=== PATIENT | male | born 1970 | race Hispanic/Latino ===

== ENCOUNTER 2017-04-03 13:01 | Emergency (ER) | payer OTHER ==
[2017-04-03 14:06] LABS: BASOPHILS % (AUTO) 0.7 % (0.0-5.0); EOSINOPHILS % (AUTO) 0.7 % (0.0-8.0); HEMATOCRIT 40.6 % (42-54); LYMPHOCYTES % (AUTO) 25.7 % (21.0-51.0); MEAN CORPUSCULAR HEMOGLOBIN 29.9 pg (27.0-33.0); MEAN CORPUSCULAR HGB CONC 35.8 g/dL (32.0-36.0); MEAN CORPUSCULAR VOLUME 83.5 fL (79-99); MONOCYTES % (AUTO) 7.3 % (3.0-13.0); NEUTROPHILS % (AUTO) 65.6 % (40.0-77.0); PLATELET COUNT (AUTO) 225 K/uL (130-400); RED BLOOD CELL COUNT(AUTO) 4.86 MIL/uL (4.50-6.20); RED CELL DISTRIBUTION WIDTH 13.6 % (11.0-15.5); WHITE BLOOD COUNT (AUTO) 10.3 K/uL (4.8-10.8)
[2017-04-03 14:22] LABS: CREATININE 1.3 mg/dL (0.5-1.5); POTASSIUM 4.4 mmol/L (3.5-5.1)
[2017-04-03 14:27] LABS: ALBUMIN 3.3 g/dL (3.5-5.0); BILIRUBIN,TOTAL 0.7 mg/dL (0.2-1.0); TOTAL PROTEIN, SERUM 7.4 g/dL (6.0-8.3)
[2017-04-03] MEDS ORDERED: KETOROLAC TROMETHAMINE 15MG/ML ONE (14:32)
[2017-04-03] MEDS ORDERED: INSULIN HUMULIN R 100 UNIT/ML 3ML ONE (14:33)
== END 2017-04-03 16:45 | disposition home or self-care (01) ==
LOC: EDH 13:01
DX: I80.8 Phlebitis and thrombophlebitis of other sites (principal); E11.9 Type 2 diabetes mellitus without complications; I10 Essential (primary) hypertension; Z88.8 Allergy status to other drugs, medicaments and biological substances; Z98.890 Other specified postprocedural states
CPT/HCPCS: 36415; 80053; 85025; 93005; 93971; 96372 ×2; 99285; J1815; J1885; 96374

== ENCOUNTER 2019-02-28 20:53 | Emergency (ER) | payer OTHER ==
[~2019-02-28 20:53] MED LIST: AMLO-73 PO; METF-446 PO
[2019-02-28] MEDS ORDERED: ONDANSETRON ODT 4 MG TAB ONE (22:10)
[2019-02-28] MEDS ORDERED: HYDROCODONE/ACETAMINOPHEN 10/325 MG TAB ONE (22:11)
[2019-02-28] MEDS ORDERED: LIDOCAINE 1%-EPI 1:100,000 20 ML VIAL IJ ONE (23:03)
[2019-03-05] MEDS ORDERED: ACET1TAB12 PO (05:00)
[2019-03-05] MEDS ORDERED: METH500T6 PO (05:01)
== END 2019-02-28 23:02 | disposition home or self-care (01) ==
LOC: EDH 20:53
DX: M43.06 Spondylolysis, lumbar region (principal); M54.5 Low back pain; I10 Essential (primary) hypertension; E11.9 Type 2 diabetes mellitus without complications; Z98.890 Other specified postprocedural states; Z87.891 Personal history of nicotine dependence
CPT/HCPCS: 74176; 99284; J3490

== ENCOUNTER 2019-08-19 | Inpatient (IN) | payer OTHER | END 2019-08-22 17:30 | disposition home or self-care (01) | DRG 300 | PROVIDERS: ADMIT Family Medicine ==

== ENCOUNTER 2021-04-25 23:43 | Inpatient (IN) | payer BC, OTHER ==
[~2021-04-25] VITALS: Ht 152.4 cm; Wt 129.0 kg
[~2021-04-25 23:43] MED LIST changes: +APIX5TAB PO; +FOLI0.8T3 PO; +HYDR-4153 PO; +METF-444 PO; -METF-446 PO; +METO25TA6 PO
[2021-04-26 01:46] LABS: BASOPHILS % (AUTO) 0.4 % (0.0-5.0); EOSINOPHILS % (AUTO) 0.4 % (0.0-8.0); HEMATOCRIT 26.6 % (42-54); MEAN CORPUSCULAR HEMOGLOBIN 27.8 pg (27.0-33.0); MEAN CORPUSCULAR HGB CONC 30.1 g/dL (32.0-36.0); MEAN CORPUSCULAR VOLUME 92.4 fL (79-99); MONOCYTES % (AUTO) 7.2 % (3.0-13.0); NEUTROPHILS % (AUTO) 72.9 % (40.0-77.0); PLATELET COUNT (AUTO) 351 K/uL (130-400); RED BLOOD CELL COUNT(AUTO) 2.88 MIL/uL (4.50-6.20); RED CELL DISTRIBUTION WIDTH 14.3 % (11.0-15.5); WHITE BLOOD COUNT (AUTO) 16.7 K/uL (4.8-10.8)
[2021-04-26 02:00] LABS: B-TYPE NATRIURETIC PEPTIDE 482 pg/mL (0-100)
[2021-04-26 02:12] LABS: ALBUMIN 2.2 g/dL (3.5-5.0); BILIRUBIN,TOTAL 0.3 mg/dL (0.2-1.0); MAGNESIUM 2.6 mg/dL (1.80-2.40); POTASSIUM 5.8 mmol/L (3.5-5.1); TOTAL PROTEIN, SERUM 6.8 g/dL (6.0-8.3)
[2021-04-26 02:14] LABS: CREATININE 13.6 mg/dL (0.5-1.5)
[2021-04-26] MEDS ORDERED: ZOSYN 3.375GM +NS 50ML IV SCH (07:00)
[2021-04-26] MEDS ORDERED: MORPHINE 2 MG SYG IV PRN (07:00)
[2021-04-26] MEDS ORDERED: ACETAMINOPHEN 325 MG TAB PO PRN ×2 (07:00)
[2021-04-26] MEDS: INSULIN HUMULIN R 100 UNIT/ML 3ML SQ SCH ×4 (07:30→21:00)
[2021-04-26] MEDS ORDERED: 0.9%NACL 50ML 50 ML IV ONE (07:39)
[2021-04-26] MEDS ORDERED: AMLO-258 PO (09:33)
[2021-04-26] MEDS ORDERED: METO25TA6 PO (09:33)
[2021-04-26] MEDS ORDERED: ROSU20TA31 PO (09:33)
[2021-04-26] MEDS ORDERED: OMEP40CA21 PO (09:33)
[2021-04-26] MEDS ORDERED: FOLI0.8C PO (09:33)
[2021-04-26] MEDS ORDERED: NA ZIRCON CYCLOSIL(LOKELMA 10GM) PO ONE (10:00)
[2021-04-26] MEDS: METOPROLOL TARTRATE 25 MG TAB PO SCH ×2 (10:30→21:38)
[2021-04-26] MEDS: FAMOTIDINE 20MG VIAL IV SCH (10:44)
[2021-04-26 13:15] VITALS: BP 110/58
[2021-04-26 13:38] LABS: CREATININE 14.2 mg/dL (0.5-1.5)
[2021-04-26] MEDS ORDERED: NA ZIRCON CYCLOSIL(LOKELMA 10GM) PO SCH ×2 (14:00→16:30)
[2021-04-26] MEDS ORDERED: DEXTROSE 50%-WATER 50 ML DISP.SYRIN IV SCH (14:00)
[2021-04-26] MEDS ORDERED: CALCIUM GLUC 1GM/10ML VIAL IV ONE (14:00)
[2021-04-26] MEDS ORDERED: INSULIN HUMULIN R 100 UNIT/ML 3ML SQ SCH (14:00)
[2021-04-26 14:16] LABS: ABG BASE EXCESS -16.6 mmol/L (-2.0-3.0); ABG HCO3 10.7 mmol/L (21.0-28.0); ABG OXYGEN SATURATION 68.2 % (95.0-99.0); ABG PCO2 30 mmHg (35-48)
[2021-04-26] MEDS ORDERED: SODIUM BICARB 50MEQ 50ML VIAL IV ONE (15:00)
[2021-04-26] MEDS: FUROSEMIDE 20MG VIAL IV SCH (15:02)
[2021-04-26 16:00] VITALS: BP 125/62
[2021-04-26 19:11] LABS: POTASSIUM 5.9 mmol/L (3.5-5.1)
[2021-04-26 19:19] LABS: CREATININE 14.2 mg/dL (0.5-1.5)
[2021-04-26] MEDS: MORPHINE 2 MG SYG IVP PRN (19:48)
[2021-04-26 20:12] VITALS: BP 131/60
[2021-04-26] MEDS: ZOSYN 3.375GM +NS 50ML IV SCH (21:38)
[2021-04-26 23:46] VITALS: BP 115/55
[2021-04-27] VITALS (16 sets, daily range): BP systolic 118–166; BP diastolic 55–77
[2021-04-27] MEDS: MORPHINE 2 MG SYG IVP PRN ×2 (00:31→04:16)
[2021-04-27] MEDS: FUROSEMIDE 20MG VIAL IV SCH ×2 (02:30→15:35)
[2021-04-27] MEDS: ONDANSETRON 4MG INJ IV PRN ×2 (04:15→12:15)
[2021-04-27 04:53] LABS: BASOPHILS % (AUTO) 0.4 % (0.0-5.0); EOSINOPHILS % (AUTO) 0.2 % (0.0-8.0); HEMATOCRIT 24.2 % (42-54); LYMPHOCYTES % (AUTO) 13.4 % (21.0-51.0); MEAN CORPUSCULAR HEMOGLOBIN 28.2 pg (27.0-33.0); MEAN CORPUSCULAR HGB CONC 30.2 g/dL (32.0-36.0); MEAN CORPUSCULAR VOLUME 93.4 fL (79-99); MONOCYTES % (AUTO) 7.5 % (3.0-13.0); NEUTROPHILS % (AUTO) 77.9 % (40.0-77.0); NUCLEATED RED BLOOD CELLS 0.1 % (0.0-0.19); PLATELET COUNT (AUTO) 319 K/uL (130-400); RED BLOOD CELL COUNT(AUTO) 2.59 MIL/uL (4.50-6.20); RED CELL DISTRIBUTION WIDTH 14.1 % (11.0-15.5); WHITE BLOOD COUNT (AUTO) 15.5 K/uL (4.8-10.8)
[2021-04-27 05:09] LABS: ALBUMIN 2.1 g/dL (3.5-5.0); BILIRUBIN,TOTAL 0.2 mg/dL (0.2-1.0); POTASSIUM 5.8 mmol/L (3.5-5.1); TOTAL PROTEIN, SERUM 6.4 g/dL (6.0-8.3)
[2021-04-27 05:11] LABS: % IRON SATURATION 39.8 % (30-44)
[2021-04-27 05:14] LABS: CREATININE 14.4 mg/dL (0.5-1.5)
[2021-04-27] MEDS: INSULIN HUMULIN R 100 UNIT/ML 3ML SQ SCH ×4 (06:33→21:00)
[2021-04-27] MEDS: FAMOTIDINE 20MG VIAL IV SCH (09:05)
[2021-04-27] MEDS: ZOSYN 3.375GM +NS 50ML IV SCH ×2 (09:05→21:35)
[2021-04-27] MEDS: METOPROLOL TARTRATE 25 MG TAB PO SCH ×2 (09:05→21:35)
[2021-04-27] MEDS: Vitamin B Complex/Vit C/Folic Acid PO SCH (09:05)
[2021-04-27] MEDS ORDERED: IOHEXOL-350 50ML VIAL IV ONE (10:56)
[2021-04-27] MEDS ORDERED: MIDAZOLAM HCL 1 MG/ML 2ML VIAL ONE (10:56)
[2021-04-27] MEDS ORDERED: LIDOCAINE HCL 1% MDV 50ML VIAL ONE (10:56)
[2021-04-27] MEDS ORDERED: HEPARIN 10,000 UNIT/10ML (1,000 UNIT/ML) VIAL ONE (11:25)
[2021-04-27 14:54] LABS: HEMATOCRIT 24.2 % (42-54)
[2021-04-27 15:10] LABS: ALBUMIN 2.2 g/dL (3.5-5.0)
[2021-04-27 15:12] LABS: CREATININE 13.5 mg/dL (0.5-1.5)
[2021-04-27] MEDS: HEPARIN 5,000 UNIT VIAL IRRIG PRN (16:37)
[2021-04-27] MEDS ORDERED: ZINC OXIDE OINT 56.7 GM TP PRN (18:30)
[2021-04-27 18:42] LABS: HEPATITIS B SURFACE ANTIGEN Non-Reactive (Negative)
[2021-04-27] MEDS ORDERED: LABETALOL 20MG VIAL IV PRN (20:00)
[2021-04-28] VITALS (19 sets, daily range): BP systolic 119–180; BP diastolic 61–88
[2021-04-28] MEDS: HYDRALAZINE 25MG TABLET PO SCH ×3 (00:18→09:21)
[2021-04-28] MEDS: ONDANSETRON 4MG INJ IV PRN ×2 (01:04→10:26)
[2021-04-28] MEDS: FUROSEMIDE 20MG VIAL IV SCH (01:06)
[2021-04-28] MEDS: INSULIN HUMULIN R 100 UNIT/ML 3ML SQ SCH ×4 (07:30→21:00)
[2021-04-28] MEDS: ZOSYN 3.375GM +NS 50ML IV SCH ×2 (09:16→21:18)
[2021-04-28] MEDS: METOPROLOL TARTRATE 25 MG TAB PO SCH ×2 (09:16→21:17)
[2021-04-28] MEDS: Vitamin B Complex/Vit C/Folic Acid PO SCH (09:16)
[2021-04-28] MEDS: FAMOTIDINE 20MG VIAL IV SCH (09:16)
[2021-04-28 09:32] LABS: POTASSIUM 5.1 mmol/L (3.5-5.1)
[2021-04-28 09:44] LABS: CREATININE 13.7 mg/dL (0.5-1.5)
[2021-04-28] MEDS ORDERED: EPOETIN ALFA-EPBX (ESRD) 10,000 UNIT/ML VIAL SQ SCH (12:00)
[2021-04-28] MEDS ORDERED: HEPARIN 5,000 UNIT VIAL IV SCH (15:00)
[2021-04-28] MEDS: HEPARIN 5,000 UNIT VIAL IRRIG PRN (15:13)
[2021-04-28] MEDS: CALCIUM AC 667MG CAP PO SCH ×2 (16:16→18:24)
[2021-04-28] MEDS ORDERED: BISACODYL 5 MG TABLET.DR PO SCH (20:00)
[2021-04-28] MEDS ORDERED: GUAIFENESIN-DM 200/20 MG 10 ML PO PRN (22:30)
[2021-04-28] MEDS: IPRATROPIUM/ALBUTEROL SULFATE 3 ML SOLUTION IH SCH (23:02)
[2021-04-29] VITALS (7 sets, daily range): BP systolic 104–162; BP diastolic 63–86
[2021-04-29] MEDS: IPRATROPIUM/ALBUTEROL SULFATE 3 ML SOLUTION IH SCH (02:18)
[2021-04-29] MEDS: INSULIN HUMULIN R 100 UNIT/ML 3ML SQ SCH ×4 (06:38→21:00)
[2021-04-29] MEDS: ALBUTEROL 0.083% 2.5 MG/3 ML INH IH SCH ×4 (06:44→18:59)
[2021-04-29] MEDS ORDERED: ALBUTEROL 0.083% 2.5 MG/3 ML INH IH SCH (09:00)
[2021-04-29] MEDS: METOPROLOL TARTRATE 25 MG TAB PO SCH ×2 (09:11→21:28)
[2021-04-29] MEDS: SENNOSIDES 8.6 MG TABLET PO SCH (09:11)
[2021-04-29] MEDS: CALCIUM AC 667MG CAP PO SCH ×3 (09:11→17:00)
[2021-04-29] MEDS: ZOSYN 3.375GM +NS 50ML IV SCH ×2 (09:11→21:43)
[2021-04-29] MEDS: FAMOTIDINE 20MG VIAL IV SCH (09:12)
[2021-04-29] MEDS: Vitamin B Complex/Vit C/Folic Acid PO SCH (09:12)
[2021-04-29] MEDS: ONDANSETRON 4MG INJ IV PRN (12:45)
[2021-04-29] MEDS: HEPARIN 5,000 UNIT VIAL IRRIG PRN (16:25)
[2021-04-30] VITALS (24 sets, daily range): BP systolic 140–198; BP diastolic 67–100
[2021-04-30] MEDS: HEPARIN 5,000 UNIT VIAL IRRIG PRN (00:59)
[2021-04-30 05:13] LABS: BASOPHILS % (AUTO) 0.6 % (0.0-5.0); EOSINOPHILS % (AUTO) 0.9 % (0.0-8.0); HEMATOCRIT 21.3 % (42-54); LYMPHOCYTES % (AUTO) 17.5 % (21.0-51.0); MEAN CORPUSCULAR HEMOGLOBIN 28.3 pg (27.0-33.0); MEAN CORPUSCULAR HGB CONC 31.9 g/dL (32.0-36.0); MEAN CORPUSCULAR VOLUME 88.8 fL (79-99); MONOCYTES % (AUTO) 10.2 % (3.0-13.0); NEUTROPHILS % (AUTO) 69.8 % (40.0-77.0); PLATELET COUNT (AUTO) 122 K/uL (130-400); RED CELL DISTRIBUTION WIDTH 13.9 % (11.0-15.5); WHITE BLOOD COUNT (AUTO) 12.8 K/uL (4.8-10.8)
[2021-04-30 05:14] LABS: INR 1.06 (0.85-1.15); PROTHROMBIN TIME 11.5 SEC (9.6-11.6)
[2021-04-30 05:32] LABS: PHOSPHORUS 10.1 mg/dL (2.5-4.9); POTASSIUM 4.7 mmol/L (3.5-5.1)
[2021-04-30 05:37] LABS: CREATININE 12.4 mg/dL (0.5-1.5)
[2021-04-30 05:55] LABS: HEMATOCRIT 21.3 % (42-54)
[2021-04-30] MEDS: ALBUTEROL 0.083% 2.5 MG/3 ML INH IH SCH ×4 (06:22→19:16)
[2021-04-30] MEDS: INSULIN HUMULIN R 100 UNIT/ML 3ML SQ SCH ×4 (06:52→21:00)
[2021-04-30] MEDS: Vitamin B Complex/Vit C/Folic Acid PO SCH (09:49)
[2021-04-30] MEDS: METOPROLOL TARTRATE 25 MG TAB PO SCH ×2 (09:49→21:27)
[2021-04-30] MEDS: SENNOSIDES 8.6 MG TABLET PO SCH (09:49)
[2021-04-30] MEDS: CALCIUM AC 667MG CAP PO SCH ×3 (09:49→17:11)
[2021-04-30] MEDS: ZOSYN 3.375GM +NS 50ML IV SCH ×2 (09:50→21:26)
[2021-04-30] MEDS: FAMOTIDINE 20MG VIAL IV SCH (09:50)
[2021-04-30] MEDS: EPOETIN ALFA-EPBX (ESRD) 10,000 UNIT/ML VIAL SQ SCH (21:26)
[2021-05-01] VITALS (21 sets, daily range): BP systolic 138–185; BP diastolic 69–97
[2021-05-01] MEDS: HEPARIN 5,000 UNIT VIAL IRRIG PRN (01:35)
[2021-05-01 06:24] LABS: HEMOGLOBIN A1C 6.6 % (4.0-6.0)
[2021-05-01] MEDS: INSULIN HUMULIN R 100 UNIT/ML 3ML SQ SCH ×4 (06:24→20:25)
[2021-05-01] MEDS: ALBUTEROL 0.083% 2.5 MG/3 ML INH IH SCH ×4 (07:37→17:22)
[2021-05-01] MEDS: CALCIUM AC 667MG CAP PO SCH ×3 (08:00→17:37)
[2021-05-01 08:26] LABS: HEMATOCRIT 24.8 % (42-54); MEAN CORPUSCULAR HEMOGLOBIN 27.7 pg (27.0-33.0); MEAN CORPUSCULAR HGB CONC 31.5 g/dL (32.0-36.0); MEAN CORPUSCULAR VOLUME 87.9 fL (79-99); NUCLEATED RED BLOOD CELLS 0.4 % (0.0-0.19); RED BLOOD CELL COUNT(AUTO) 2.82 MIL/uL (4.50-6.20); RED CELL DISTRIBUTION WIDTH 13.9 % (11.0-15.5); WHITE BLOOD COUNT (AUTO) 13.3 K/uL (4.8-10.8)
[2021-05-01 08:30] LABS: INR 1.06 (0.85-1.15); PROTHROMBIN TIME 11.5 SEC (9.6-11.6)
[2021-05-01 08:32] LABS: PARTIAL THROMBOPLASTIN TIME 31.9 SEC (26.3-35.5)
[2021-05-01 08:35] LABS: POTASSIUM 3.7 mmol/L (3.5-5.1)
[2021-05-01] MEDS: SENNOSIDES 8.6 MG TABLET PO SCH (08:56)
[2021-05-01] MEDS: Vitamin B Complex/Vit C/Folic Acid PO SCH (08:56)
[2021-05-01] MEDS: FAMOTIDINE 20MG VIAL IV SCH (09:00)
[2021-05-01] MEDS: METOPROLOL TARTRATE 25 MG TAB PO SCH ×2 (10:51→20:27)
[2021-05-01] MEDS: ZOSYN 3.375GM +NS 50ML IV SCH ×2 (10:51→22:14)
[2021-05-01] MEDS ORDERED: 0.9%NACL 1000ML 1,000 ML IV ONE (13:35)
[2021-05-01] MEDS ORDERED: CEFAZOLIN SODIUM 1 GM VIAL ONE (13:42)
[2021-05-01] MEDS ORDERED: ROPIVACAINE 0.5% 5MG/ML 30ML IJ ONE ×2 (13:53→15:30)
[2021-05-01] MEDS ORDERED: MIDAZOLAM HCL 1 MG/ML 2ML VIAL ONE (13:59)
[2021-05-01] MEDS ORDERED: EPHEDRINE SULFATE 50 MG/ML AMPULE ONE (14:13)
[2021-05-01] MEDS ORDERED: BUPIVACAINE/PF 0.5% 30ML VIAL ONE (14:46)
[2021-05-01] MEDS ORDERED: LIDOCAINE HCL 1% MDV 50ML VIAL ONE (14:46)
[2021-05-01] MEDS ORDERED: PROPOFOL 10 MG/ML 20ML VIAL IV ONE (14:46)
[2021-05-01] MEDS ORDERED: FENTANYL CITRATE PF 50 MCG/1 ML 2ML VIAL ONE (15:05)
[2021-05-01] MEDS ORDERED: PROTAMINE SULFATE 10 MG/ML 5 ML VIAL ONE (15:12)
[2021-05-01] MEDS ORDERED: HEPARIN 10,000 UNIT/10ML (1,000 UNIT/ML) VIAL ONE (15:30)
[2021-05-01] MEDS ORDERED: LIDOCAINE 2%-EPI 1:200,000 20 ML VIAL IJ ONE (15:30)
[2021-05-01] MEDS ORDERED: AMLODIPINE 5 MG TAB PO ONE (22:30)
[2021-05-02] VITALS (22 sets, daily range): BP systolic 148–200; BP diastolic 69–103
[2021-05-02] MEDS ORDERED: AMLODIPINE 5 MG TAB ONE (00:26)
[2021-05-02 03:03] LABS: APPEARANCE,URINE Clear (CLEAR); BILIRUBIN,URINE Negative (NEGATIVE); COLOR,URINE Yellow (YELLOW); GLUCOSE, URINE (UA) 250 mg/dL (NEGATIVE); KETONES,URINE Negative (NEGATIVE); LEUKOCYTE ESTERASE ,URINE Trace (NEGATIVE); NITRATE,URINE Negative (NEGATIVE); OCCULT BLOOD,URINE Moderate (NEGATIVE); PROTEIN,URINE 300 mg/dL (NEGATIVE); UROBILINOGEN,URINE 0.2 mg/dL (0.2-1.0)
[2021-05-02 03:07] LABS: CREATININE,URINE RANDOM 44 mg/dL (30-135)
[2021-05-02 03:10] LABS: BACTERIA,URINE None Seen /HPF (None Seen); SQUAMOUS EPITHELIAL CELL,UR Rare /HPF (0-2); WBC,URINE 0-1 /HPF (0-1)
[2021-05-02 03:42] LABS: PROTEIN,URINE RANDOM 341.4 mg/dL (0-11.9)
[2021-05-02 04:55] LABS: BASOPHILS % (AUTO) 0.6 % (0.0-5.0); EOSINOPHILS % (AUTO) 2.2 % (0.0-8.0); HEMATOCRIT 23.8 % (42-54); LYMPHOCYTES % (AUTO) 11.2 % (21.0-51.0); MEAN CORPUSCULAR HEMOGLOBIN 28.4 pg (27.0-33.0); MEAN CORPUSCULAR HGB CONC 31.5 g/dL (32.0-36.0); MEAN CORPUSCULAR VOLUME 90.2 fL (79-99); MONOCYTES % (AUTO) 9.6 % (3.0-13.0); NEUTROPHILS % (AUTO) 75.1 % (40.0-77.0); NUCLEATED RED BLOOD CELLS 0.4 % (0.0-0.19); PLATELET COUNT (AUTO) 227 K/uL (130-400); RED BLOOD CELL COUNT(AUTO) 2.64 MIL/uL (4.50-6.20); RED CELL DISTRIBUTION WIDTH 13.9 % (11.0-15.5); WHITE BLOOD COUNT (AUTO) 14.1 K/uL (4.8-10.8)
[2021-05-02 05:27] LABS: % IRON SATURATION 11.9 % (30-44)
[2021-05-02 05:51] LABS: ALANINE AMINOTRANSFERASE 24 U/L (12-78); ALBUMIN 2.2 g/dL (3.5-5.0); ASPARTATE AMINOTRANSFERASE 24 U/L (10-37); BILIRUBIN,TOTAL 0.3 mg/dL (0.2-1.0); CARBON DIOXIDE 23 mmol/L (21-32); CHLORIDE 98 mmol/L (101-111); GLOMERULAR FILTR. RATE CALC 6 mL/min (>60); GLUCOSE,RANDOM 149 mg/dL (70-105); PHOSPHORUS 8.2 mg/dL (2.5-4.9); POTASSIUM 3.9 mmol/L (3.5-5.1); SODIUM SERUM 135 mmol/L (136-145); TOTAL PROTEIN, SERUM 6.7 g/dL (6.0-8.3); UREA NITROGEN, BLOOD 53 mg/dL (7-18)
[2021-05-02 05:54] LABS: CREATININE 10.5 mg/dL (0.5-1.5)
[2021-05-02] MEDS: INSULIN HUMULIN R 100 UNIT/ML 3ML SQ SCH ×4 (06:18→21:03)
[2021-05-02] MEDS: ALBUTEROL 0.083% 2.5 MG/3 ML INH IH SCH ×4 (06:50→18:28)
[2021-05-02] MEDS ORDERED: FAMOTIDINE 20MG TAB PO ONE (09:00)
[2021-05-02] MEDS: LOSARTAN 50 MG TABLET PO SCH ×3 (10:00→20:56)
[2021-05-02] MEDS ORDERED: IRON SUCROSE COMPLEX 400 MG in 0.9% NACL 250ML 250 ML IV SCH (10:00)
[2021-05-02] MEDS: CALCIUM AC 667MG CAP PO SCH ×3 (10:11→17:36)
[2021-05-02] MEDS: ZOSYN 3.375GM +NS 50ML IV SCH ×2 (10:11→20:55)
[2021-05-02] MEDS: SENNOSIDES 8.6 MG TABLET PO SCH (10:11)
[2021-05-02] MEDS: METOPROLOL TARTRATE 25 MG TAB PO SCH ×2 (10:11→20:56)
[2021-05-02] MEDS: Vitamin B Complex/Vit C/Folic Acid PO SCH (10:11)
[2021-05-02] MEDS: AMLODIPINE 5 MG TAB PO SCH ×2 (10:11→20:56)
[2021-05-02] MEDS ORDERED: ERGOCALCIFEROL (VITAMIN D2) 50,000 UNIT CAPSULE PO SCH (15:00)
[2021-05-02] MEDS: EPOETIN ALFA-EPBX (ESRD) 10,000 UNIT/ML VIAL SQ SCH (20:55)
[2021-05-02] MEDS: HYDRALAZINE HCL 10 MG TABLET PO SCH (20:56)
[2021-05-02] MEDS ORDERED: ATORVASTATIN 20 MG TABLET PO SCH (21:00)
[2021-05-03] VITALS (8 sets, daily range): BP systolic 132–169; BP diastolic 71–81
[2021-05-03 05:02] LABS: BASOPHILS % (AUTO) 0.7 % (0.0-5.0); EOSINOPHILS % (AUTO) 1.7 % (0.0-8.0); HEMATOCRIT 22.4 % (42-54); LYMPHOCYTES % (AUTO) 19.9 % (21.0-51.0); MEAN CORPUSCULAR HEMOGLOBIN 28.3 pg (27.0-33.0); MEAN CORPUSCULAR HGB CONC 31.3 g/dL (32.0-36.0); MEAN CORPUSCULAR VOLUME 90.7 fL (79-99); MONOCYTES % (AUTO) 10.8 % (3.0-13.0); NEUTROPHILS % (AUTO) 65.4 % (40.0-77.0); NUCLEATED RED BLOOD CELLS 0.5 % (0.0-0.19); PLATELET COUNT (AUTO) 206 K/uL (130-400); RED BLOOD CELL COUNT(AUTO) 2.47 MIL/uL (4.50-6.20); RED CELL DISTRIBUTION WIDTH 13.9 % (11.0-15.5); WHITE BLOOD COUNT (AUTO) 13.4 K/uL (4.8-10.8)
[2021-05-03 05:32] LABS: ALBUMIN 2.1 g/dL (3.5-5.0); BILIRUBIN,TOTAL 0.6 mg/dL (0.2-1.0); POTASSIUM 3.3 mmol/L (3.5-5.1); TOTAL PROTEIN, SERUM 6.5 g/dL (6.0-8.3)
[2021-05-03 05:34] LABS: CREATININE 8.9 mg/dL (0.5-1.5)
[2021-05-03] MEDS: INSULIN HUMULIN R 100 UNIT/ML 3ML SQ SCH ×2 (05:34→11:30)
[2021-05-03] MEDS: METOPROLOL TARTRATE 25 MG TAB PO SCH ×2 (05:34→10:09)
[2021-05-03] MEDS: ALBUTEROL 0.083% 2.5 MG/3 ML INH IH SCH ×2 (06:59→09:38)
[2021-05-03] MEDS ORDERED: Calcium Ac 667MG Cap PO (08:58)
[2021-05-03] MEDS ORDERED: METO25TA6 PO (08:58)
[2021-05-03] MEDS ORDERED: Folic Acid/Vitamin B Comp W-C PO (08:58)
[2021-05-03] MEDS ORDERED: LOSA50TA2 PO (08:58)
[2021-05-03] MEDS ORDERED: METO25 PO (08:58)
[2021-05-03] MEDS ORDERED: ATOR40TA69 PO (08:58)
[2021-05-03] MEDS ORDERED: Ergocalciferol (Vitamin D2) PO (08:58)
[2021-05-03] MEDS ORDERED: SENN8.6T32 PO (08:58)
[2021-05-03] MEDS ORDERED: HYDR-3420 PO (08:58)
[2021-05-03] MEDS ORDERED: AMLO-257 PO (08:58)
[2021-05-03] MEDS ORDERED: LOSARTAN 50 MG TABLET PO SCH (09:00)
[2021-05-03] MEDS: Vitamin B Complex/Vit C/Folic Acid PO SCH (10:08)
[2021-05-03] MEDS: AMLODIPINE 5 MG TAB PO SCH ×3 (10:09→10:11)
[2021-05-03] MEDS: LOSARTAN 50 MG TABLET PO SCH ×2 (10:09→10:15)
[2021-05-03] MEDS: SENNOSIDES 8.6 MG TABLET PO SCH (10:09)
[2021-05-03] MEDS: HYDRALAZINE HCL 10 MG TABLET PO SCH ×2 (10:16→14:10)
[2021-05-03] MEDS: CALCIUM AC 667MG CAP PO SCH ×2 (10:17→12:24)
[2021-05-03] MEDS ORDERED: HEPARIN 1,000 UNIT VIAL ONE (13:08)
[2021-05-03] MEDS ORDERED: LIDOCAINE HCL 1% 20 ML VIAL ONE (13:08)
[2021-05-03 16:24] LABS: HEMATOCRIT 25.8 % (42-54)
[2021-05-03] MEDS ORDERED: KCL 20 MEQ ERTAB PO ONE (17:30)
== END 2021-05-03 18:45 | disposition home or self-care (01) | DRG 673 ==
LOC: EDH 23:43 → EDHIP 04-26 06:31 → 3AH 04-26 13:10
PROVIDERS: ADMIT Internal Medicine; ATTEND Internal Medicine
PROC: 5A1D70Z Performance of Urinary Filtration, Intermittent, Less than 6 Hours Per Day (ICD-10-PCS; 2021-04-27)
PROC: 02HV33Z Insertion of Infusion Device into Superior Vena Cava, Percutaneous Approach (ICD-10-PCS; 2021-04-27)
PROC: B548ZZA Ultrasonography of Superior Vena Cava, Guidance (ICD-10-PCS; 2021-04-27)
PROC: 5A1D70Z Performance of Urinary Filtration, Intermittent, Less than 6 Hours Per Day (ICD-10-PCS; 2021-04-28)
PROC: 30233N1 Transfusion of Nonautologous Red Blood Cells into Peripheral Vein, Percutaneous Approach (ICD-10-PCS; 2021-04-30)
PROC: 5A1D70Z Performance of Urinary Filtration, Intermittent, Less than 6 Hours Per Day (ICD-10-PCS; 2021-04-30)
PROC: 031C0ZF Bypass Left Radial Artery to Lower Arm Vein, Open Approach (ICD-10-PCS; 2021-05-01)
PROC: 5A1D70Z Performance of Urinary Filtration, Intermittent, Less than 6 Hours Per Day (ICD-10-PCS; 2021-05-02)
PROC: 02PYX3Z Removal of Infusion Device from Great Vessel, External Approach (ICD-10-PCS; principal; 2021-05-03)
PROC: 02H633Z Insertion of Infusion Device into Right Atrium, Percutaneous Approach (ICD-10-PCS; 2021-05-03)
PROC: 0JH63XZ Insertion of Tunneled Vascular Access Device into Chest Subcutaneous Tissue and Fascia, Percutaneous Approach (ICD-10-PCS; 2021-05-03)
PROC: B5181ZA Fluoroscopy of Superior Vena Cava using Low Osmolar Contrast, Guidance (ICD-10-PCS; 2021-05-03)
DX: N17.9 Acute kidney failure, unspecified (principal); I50.33 Acute on chronic diastolic (congestive) heart failure; I13.2 Hypertensive heart and chronic kidney disease with heart failure and with stage 5 chronic kidney disease, or end stage renal disease; E87.1 Hypo-osmolality and hyponatremia; Z68.43 Body mass index [BMI] 50.0-59.9, adult; N18.6 End stage renal disease; N25.81 Secondary hyperparathyroidism of renal origin; E87.70 Fluid overload, unspecified; E87.5 Hyperkalemia; D72.829 Elevated white blood cell count, unspecified; E11.22 Type 2 diabetes mellitus with diabetic chronic kidney disease; Z20.822 Contact with and (suspected) exposure to COVID-19; D50.9 Iron deficiency anemia, unspecified; E11.51 Type 2 diabetes mellitus with diabetic peripheral angiopathy without gangrene; I16.0 Hypertensive urgency; E55.9 Vitamin D deficiency, unspecified; E66.9 Obesity, unspecified; E87.8 Other disorders of electrolyte and fluid balance, not elsewhere classified; Z99.2 Dependence on renal dialysis; Z79.01 Long term (current) use of anticoagulants; Z86.718 Personal history of other venous thrombosis and embolism; Z89.612 Acquired absence of left leg above knee; Z89.511 Acquired absence of right leg below knee; Z89.512 Acquired absence of left leg below knee; Z89.611 Acquired absence of right leg above knee; Z88.8 Allergy status to other drugs, medicaments and biological substances; Z83.3 Family history of diabetes mellitus; Z82.49 Family history of ischemic heart disease and other diseases of the circulatory system; Z80.8 Family history of malignant neoplasm of other organs or systems
CPT/HCPCS: 36415; 36430; 36556; 36576; 36581; 36600; 71045; 74018; 76770; 77001; 80048; 80053; 80061; 81001; 82040; 82043; 82306; 82330; 82550; 82565; 82570; 82607; 82728; 82746; 82803; 82948; 83036; 83540; 83550; 83690; 83735; 83880; 83970; 84100; 84145; 84156; 84443; 84484; 84520; 84550; 85014; 85018; 85025; 85027; 85045; 85610; 85730; 86038; 86160; 86162; 86215; 86235; 86701; 86704; 86706; 86850; 86900; 86901; 86922; 87088; 87340; 87390; 87635; 87804; 90935; 93005; 93306; 93356; 93970; 93971; 94640; 94664; 97039; A4338; C1750; C1752; G0378; J0690; J1644; J1756; J1815; J1940; J2250; J2405; J2543; J2704; J2720; J2795; J3010; J3490; J7030; J7050; J7070; P9016; Q9967

== ENCOUNTER 2021-08-25 16:07 | Emergency (ER) | payer BC ==
[~2021-08-25] VITALS: Ht 185.4 cm; Wt 108.9 kg
[~2021-08-25 16:07] MED LIST changes: +AMLO-257 PO; -AMLO-73 PO; -APIX5TAB PO; +ATOR40TA69 PO; +Calcium Ac 667MG Cap PO; +Ergocalciferol (Vitamin D2) PO; -FOLI0.8T3 PO; +Folic Acid/Vitamin B Comp W-C PO; +HYDR-3420 PO; -HYDR-4153 PO; +LOSA50TA2 PO; -METF-444 PO; +METO25 PO; +SENN8.6T32 PO
[2021-08-25] MEDS ORDERED: 0.9%NACL 1000ML 1,000 ML IV ONE (16:30)
[2021-08-25] MEDS ORDERED: CYCLOBENZAPRINE HCL 10 MG TABLET PO ONE (16:30)
[2021-08-25] MEDS ORDERED: PROMETHAZINE HCL 25 MG/ML 1ML AMPULE IVPB SCH (16:30)
[2021-08-25] MEDS ORDERED: KETOROLAC 30MG VIAL (30MG/ML) IVP ONE (16:30)
[2021-08-25 16:38] VITALS: BP 142/74
[2021-08-25 17:02] LABS: EOSINOPHILS % (AUTO) 1.6 % (0.0-8.0); HEMATOCRIT 26.2 % (42-54); LYMPHOCYTES % (AUTO) 18.1 % (21.0-51.0); MEAN CORPUSCULAR HEMOGLOBIN 29.1 pg (27.0-33.0); MEAN CORPUSCULAR HGB CONC 32.4 g/dL (32.0-36.0); MEAN CORPUSCULAR VOLUME 89.7 fL (79-99); MONOCYTES % (AUTO) 8.8 % (3.0-13.0); PLATELET COUNT (AUTO) 220 K/uL (130-400); RED BLOOD CELL COUNT(AUTO) 2.92 MIL/uL (4.50-6.20); RED CELL DISTRIBUTION WIDTH 13.3 % (11.0-15.5); WHITE BLOOD COUNT (AUTO) 10.7 K/uL (4.8-10.8)
[2021-08-25 17:18] LABS: CARBON DIOXIDE 27 mmol/L (21-32); CHLORIDE 104 mmol/L (101-111); CREATININE 5.8 mg/dL (0.5-1.5); GLOMERULAR FILTR. RATE CALC 11 mL/min (>60); GLUCOSE,RANDOM 243 mg/dL (70-105); POTASSIUM 3.5 mmol/L (3.5-5.1); SODIUM SERUM 140 mmol/L (136-145); UREA NITROGEN, BLOOD 27 mg/dL (7-18)
[2021-08-25 17:22] LABS: ALANINE AMINOTRANSFERASE 12 U/L (12-78); ALBUMIN 2.5 g/dL (3.5-5.0); ASPARTATE AMINOTRANSFERASE 14 U/L (10-37); LIPASE 73 U/L (114-286); TOTAL PROTEIN, SERUM 6.6 g/dL (6.0-8.3)
== END 2021-08-25 17:56 | disposition home or self-care (01) ==
LOC: EDH 16:07
DX: I12.0 Hypertensive chronic kidney disease with stage 5 chronic kidney disease or end stage renal disease (principal); E11.22 Type 2 diabetes mellitus with diabetic chronic kidney disease; N18.6 End stage renal disease; D63.1 Anemia in chronic kidney disease; Z99.2 Dependence on renal dialysis; Z89.511 Acquired absence of right leg below knee; Z79.899 Other long term (current) drug therapy; Z79.1 Long term (current) use of non-steroidal anti-inflammatories (NSAID)
CPT/HCPCS: 36415; 80053; 83690; 84484; 85025